=== PATIENT | male | born 1975 | race Caucasian/White ===

== ENCOUNTER 2018-09-17 08:46 | Emergency (ER) | payer BC, OTHER ==
[2018-09-17 09:07] VITALS: BP 128/80
--- NOTE | 2018-09-17 10:15 | UC ---
Cardiac HPI - HPI Summary HPI Summary: Patient is a 43-year-old male with a 2 week history of dyspnea that occurs primarily in the evening. She had with some left-sided chest pain that radiates through to his back. He has also been plagued with some recent dyspepsia. He has some chronic left shoulder issues and movement of his left arm seems to exacerbate his symptoms. I'll nonproductive cough. He takes a deep breath it increases his pain. Last night he had about a 30 minute episode of the symptoms. The symptoms were so she had with diaphoresis. Father had an UT at an early age. He thinks his dad had his first UT in his early 40s. He is currently asymptomatic. - History of Current Complaint Chief Complaint: UCRespiratory Stated Complaint: SHORTNESS OF BREATH, COUGH Time Seen by Provider: 09/17/18 09:10 Hx Obtained From: Patient Onset/Duration: Sudden Onset, Lasting Hours Timing: Intermittent Episodes Lasting: - 15 min - 1 + hour Initial Severity: Moderate Current Severity: None Pain Intensity: 0 Chest Pain Location: Left Anterior Character: Sharp/Stabbing Aggravating Factor(s): Deep Breaths Alleviating Factor(s): Nothing Associated Signs & Symptoms: Positive: Chest Pain - Allergy/Home Medications Allergies/Adverse Reactions: Allergies Allergy/AdvReac Type Severity Reaction Status Date / Time No Known Allergies Allergy Verified 09/17/18 08:57 Home Medications: Home Medications Cholecalciferol TAB* [Vitamin D TAB*] 400 unit PO DAILY 09/17/18 [History Confirmed 09/17/18] Fibro Relief 1 dose PO DAILY 09/17/18 [History Confirmed 09/17/18] Guaifenesin/Dextromethorphan [Children's Mucinex Cough Liq] 118 ml PO ONCE 09/17 [History Confirmed 09/17/18] Potassium 1 dose PO DAILY 09/17/18 [History Confirmed 09/17/18] PMH/Surg Hx/FS Hx/Imm Hx Previously Healthy: Yes - Surgical History Surgical History: Yes Surgery Procedure, Year, and Place: [facility]. [facility], 11/17, - Family History Known Family History: Positive: Cardiac Disease, Hypertension - Social History Alcohol Use: Occasionally Substance Use Type: None Smoking Status (MU): Former Smoker Amount Used/How Often: PACK A DAY Have You Smoked in the Last Year: No - quit 2013 When Did the Patient Quit Smoking/Using Tobacco: 2013 Review of Systems All Other Systems Reviewed And Are Negative: Yes Constitutional: Positive: Negative Skin: Positive: Negative Eyes: Positive: Negative ENT: Positive: Negative Respiratory: Positive: Shortness Of Breath Cardiovascular: Positive: Chest Pain Gastrointestinal: Positive: Negative Genitourinary: Positive: Negative Motor: Positive: Negative Neurovascular: Positive: Negative Musculoskeletal: Positive: Negative Neurological: Positive: Negative Psychological: Positive: Negative Physical Exam Triage Information Reviewed: Yes Appearance: Well-Appearing, No Pain Distress, Well-Nourished Vital Signs: Initial Vital Signs Temp 98.3 F 09/17/18 09:00 Pulse 71 09/17/18 09:00 Resp 16 09/17/18 09:00 BP 128/80 09/17/18 09:00 Pulse Ox 98 09/17/18 09:00 Vital Signs Reviewed: Yes Eyes: Positive: Conjunctiva Clear ENT: Positive: Hearing grossly normal. Negative: Nasal congestion, Nasal drainage, Tonsillar swelling, Tonsillar exudate, Trismus, Muffled voice Neck: Positive: Supple, Nontender, No Lymphadenopathy Respiratory: Positive: Lungs clear, Normal breath sounds, No respiratory distress, No accessory muscle use. Negative: Chest non-tender Cardiovascular: Positive: RRR, No Murmur Abdomen Description: Negative: Nontender - epigastric, No Organomegaly, CVA Tenderness (R), CVA Tenderness (L) Musculoskeletal: Positive: ROM Intact, No Edema Neurological: Positive: Alert Psychological Exam: Normal Diagnostics - Laboratory Diagnostic Studies Completed/Ordered: pOx 98 % comment : not hypoxic - Radiology No standard instances Radiology Interpretation Completed By: Radiologist Summary of Radiographic Findings: nad - EKG Cardiac Rate: NL Cardiac Rhythm: Sinus: Normal Ectopy: None ST Segment: Normal EKG Comparison: No Significant Change - Assessment/Plan Course Of Treatment: d/x Sherry Davalos NP. milly pt at [facility]. declines EMS transfer - Clinical Impression Provider Diagnosis: Chest pain of uncertain etiology Discharge - Sign-Out/Discharge Documenting (check all that apply): Patient Departure All imaging exams completed and their final reports reviewed: Yes - Discharge Plan Condition: Stable Disposition: HOME-RECOMMEND TO ED Patient Education Materials: Chest Pain (ED) Referrals: Maverick Fregoso DO [Primary Care Provider] - As Soon As Possible Additional Instructions: I suggest you go straight to the ER for evaluation of your intermittent Chest Pain and Shortness of breath I spoke to Sherry Davalos OPHTHALMIC MEDICAL TECHNOLOGIST at [facility] ER they are expecting you - Billing Disposition and Condition Condition: STABLE Disposition: Home-Recommend to ED
== END 2018-09-17 10:22 | disposition home health service (06) ==
LOC: UCCORT 08:46
DX: R07.9 Chest pain, unspecified (principal); Z87.891 Personal history of nicotine dependence
CPT/HCPCS: 71046; 93005; 99212; G0463